=== PATIENT | male | born 1995 | race African-American/Black ===

== ENCOUNTER 2018-10-13 15:13 | Emergency (ER) | payer MEDICAID ==
[~2018-10-13] VITALS: Ht 177.8 cm; Wt 81.6 kg
--- NOTE | 2018-10-13 15:18 | NUR ---
ED Nurse Note: PT NOT IN THE WAITING ROOM
[2018-10-13] MEDS ORDERED: NKM (15:24)
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
[2018-10-13 15:32] VITALS: BP 150/89
[2018-10-13] MEDS ORDERED: Acetaminophen 500mg (ES) tab ORAL ONE (16:15)
[2018-10-13 16:18] LABS: EOSINOPHILS % (AUTO) 0.9 % (0.0-3.0); HEMATOCRIT 46.5 % (42.0-52.0); HEMOGLOBIN 16.1 G/DL (14.2-18.0); LYMPHOCYTES % (AUTO) 4.6 % (20.0-45.0); MEAN CORPUSCULAR VOLUME 91 FL (80-99); MONOCYTES % (AUTO) 9.1 % (1.0-10.0); NEUTROPHILS % (AUTO) 83.4 % (45.0-75.0); PLATELET COUNT 196 K/UL (150-450); RED BLOOD COUNT 5.11 M/UL (4.70-6.10); RED CELL DISTRIBUTION WIDTH 11.7 % (11.6-14.8); WHITE BLOOD COUNT 5.9 K/UL (4.8-10.8)
--- NOTE | 2018-10-13 16:20 | NUR ---
ED Nurse Note: Received verbal order for pt ok to eat and pt was provided a cup of water.
[2018-10-13 16:23] LABS: APPEARANCE,URINE CLEAR; BILIRUBIN, URINE NEGATIVE (NEGATIVE); COLOR,URINE PALE YELLOW; GLUCOSE, URINE (UA) NEGATIVE (NEGATIVE); KETONES,URINE NEGATIVE (NEGATIVE); LEUKOCYTE ESTERASE ,URINE NEGATIVE (NEGATIVE); NITRITE,URINE NEGATIVE (NEGATIVE); PH,URINE 8 (4.5-8.0); PROTEIN,URINE NEGATIVE (NEGATIVE); UROBILINOGEN,URINE 1 MG/DL (0.0-1.0)
[2018-10-13 16:26] LABS: ANION GAP 10 mmol/L (5-15); BLOOD UREA NITROGEN 11 mg/dL (7-18); CALCIUM 9.2 MG/DL (8.5-10.1); CARBON DIOXIDE 29 MMOL/L (21-32); CHLORIDE 100 MMOL/L (98-107); CREATININE 1.3 MG/DL (0.55-1.30); POTASSIUM 3.7 MMOL/L (3.5-5.1); SODIUM 139 MMOL/L (136-145)
[2018-10-13 16:30] VITALS: BP 153/85
--- NOTE | 2018-10-13 16:31 | NUR ---
ED Nurse Note: Pt's temp went down to 100.8F after 1g of Tylenol and HR is 101/min.
[2018-10-13 16:39] LABS: ALANINE AMINOTRANSFERASE 25 U/L (12-78); ALBUMIN 4.8 G/DL (3.4-5.0); ALBUMIN/GLOBULIN RATIO 1.5 (1.0-2.7); ALKALINE PHOSPHATASE 82 U/L (46-116); ASPARTATE AMINO TRANSFERASE 20 U/L (15-37); BILIRUBIN,TOTAL 0.4 MG/DL (0.2-1.0); CKMB 0.8 NG/ML (0.0-3.6); CREATINE KINASE 323 U/L (26-308)
--- NOTE | 2018-10-13 16:39 | Diagnostic Imaging Report ---
Indication: Headache Technique: Contiguous 5 mm thick transaxial imaging of the head obtained in a Siemens Sensation [address] scanner. Soft tissue and bone windows generated. Automatic Exposure Control was utilized. Total Dose length Product (DLP): 1425.[address] Dose Index Volume (CTDIvol): 70.38 mGy Comparison: none Findings: The size and configuration of the cortical sulci, basal cisterns, and ventricles are within normal limits for age. There is no mass effect, midline shift, or edema identified. There is no evidence of acute hemorrhage or abnormal intra-axial or extra-axial fluid collections. The bones and soft tissues are unremarkable. Impression: No mass effect, edema or acute bleed. The CT scanner at [facility] is accredited by the [employer] and the scans are performed using dose optimization techniques as appropriate to a performed exam including Automatic Exposure control.
--- NOTE | 2018-10-13 16:42 | Diagnostic Imaging Report ---
Indication: Dyspnea Comparison: None A single view chest radiograph was obtained. Findings: Cardiomediastinal appearance is within normal limits for age. The lungs are clear. Pulmonary vascularity is appropriate. The diaphragmatic contour is smooth and costophrenic angles are sharp. No pleural effusions are identified. The bones are unremarkable. Impression: No acute findings
--- NOTE | 2018-10-13 16:42 | Diagnostic Imaging Report ---
Indication: Back pain. Trauma Technique: Continuous helical transaxial imaging of the lumbar spine was obtained from the lung bases to the pubic symphysis. No IV contrast was administered. Coronal 2-D reformats were also obtained. Study obtained in a Siemens sensation [address] Total Dose length Product (DLP): 626.[address] Dose Index Volume (CTDIvol): 19.21 mGy Comparison: None Findings: There is no evidence of an acute fracture or malalignment. Height and configuration of the vertebral bodies and intervertebral discs are within normal limits. Minimal scalloping of the vertebral endplates noted. The facets are unremarkable. Transitional lumbosacral anatomy noted. There is no soft tissue swelling. Impression: No evidence of acute injury The CT scanner at [facility] is accredited by the [employer] and the scans are performed using dose optimization techniques as appropriate to a performed exam including Automatic Exposure control.
--- NOTE | 2018-10-13 17:00 | NUR ---
ED Nurse Note: pt stable and fair speed of respond to nurse and mother and son at bedside.
[2018-10-13] MEDS ORDERED: Ketorolac 30mg Inj IV ONE (17:15)
[2018-10-13] MEDS ORDERED: Methocarbamol 750mg tab ORAL ONE (17:15)
[2018-10-13 17:41] VITALS: BP 124/71
[2018-10-13 18:00] VITALS: BP 127/74
--- NOTE | 2018-10-13 18:02 | NUR ---
ED Nurse Note: pt was cleared to be discharged by ERMD. pt and family received prescriptions and discharge instruction and verbalized understanding. id band and iv removed. pt ambulated to be discharged.
[2018-10-13] MEDS ORDERED: ROBAXIN-750750 MG PO (18:32)
[2018-10-13] MEDS ORDERED: IBUPROFEN600 MG ORAL (18:32)
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
--- NOTE | 2018-10-14 13:42 | Cardiology Report ---
APPROVED REPORT EKG Measurement Heart [id number] ND [id number] Sinus tachycardia Otherwise normal ECG
== END 2018-10-13 18:04 | disposition home or self-care (01) ==
LOC: EMR 15:53
DX: S06.0X1A Concussion with loss of consciousness of 30 minutes or less, initial encounter (principal); V43.52XA Car driver injured in collision with other type car in traffic accident, initial encounter; Y92.89 Other specified places as the place of occurrence of the external cause; R50.9 Fever, unspecified; M54.5 Low back pain; M54.2 Cervicalgia; M79.10 Myalgia, unspecified site; R07.9 Chest pain, unspecified; R00.0 Tachycardia, unspecified
CPT/HCPCS: 36415; 70450; 71045; 72131; 80053; 80307; 81003; 82550; 82553; 83605; 83690; 84439; 84443; 85025; 86710; 87040; 93005; 96361; 96374; 99284; J1885

== ENCOUNTER 2019-09-01 21:29 | Emergency (ER) | payer MEDICAID ==
[~2019-09-01] VITALS: Ht 177.8 cm; Wt 81.6 kg
[~2019-09-01 21:29] MED LIST: IBUPROFEN600 MG ORAL; NKM; ROBAXIN-750750 MG PO
[2019-09-01 21:55] VITALS: BP 138/87
--- NOTE | 2019-09-01 21:55 | NUR ---
ED Nurse Note: Patient walked in to ER c/o congestion x 3 days, N/D. Patient presented calm AAO x4, VSS at this time.
[2019-09-01] MEDS ORDERED: Albuterol ud Inhalation HHN ONE (22:15)
[2019-09-01] MEDS ORDERED: Ipratropium 0.02% Inh Soln 2.5ml UD HHN ONE (22:15)
--- NOTE | 2019-09-01 22:36 | Emergency Room Report ---
History of Present Illness General Chief Complaint: Upper Respiratory Illness Source: Patient Present Illness HPI Patient presents with worsening cough for 4 days. He has history of asthma and also pneumonia in the past. He feels like he has pneumonia at this time. The cough is moderately productive. He has also had fevers and chills. There is been no nausea vomiting or diarrhea. He denies any skin rashes. He has been using an inhaler intermittently. He has never taken prednisone in the past that he knows about. He did not receive an influenza vaccination. No chest pain, palpitations, dysuria, abdominal pain, anxiety, visual changes, dizziness. Allergies: Coded Allergies: No Known Allergies (Unverified , 10/13/18) Patient History Past Medical History: see triage record Social History: Denies: smoking Social History Narrative with family Reviewed Nursing Documentation: PMH: Agreed; PSxH: Agreed Nursing Documentation-PMH Hx Asthma: Yes Review of Systems All Other Systems: negative except mentioned in HPI Physical Exam Vital Signs Date Time Temp Pulse Resp B/P (MAP) Pulse Ox O2 Delivery O2 Flow Rate FiO2 09/01/19 21:40 99.0 90 14 138/87 (104) 96 Room Air Sp02 EP Interpretation: reviewed, normal General Appearance: well appearing, no apparent distress, GCS 15 Head: normocephalic Eyes: bilateral eye normal inspection, bilateral eye PERRL ENT: TMs + canals normal, moist mucus membranes, pharyngeal erythema Respiratory: no respiratory distress, wheezing, expiration Cardiovascular #1: regular rate, rhythm Cardiovascular #2: 2+ radial (R) Gastrointestinal: normal inspection Genitourinary: no CVA tenderness Musculoskeletal: gait/station normal Neurologic: alert, grossly normal Psychiatric: mood/affect normal Skin: no rash Medical Decision Making Diagnostic Impression: Primary Impression: Asthmatic bronchitis Qualified Codes: J45.41 - Moderate persistent asthma with (acute) exacerbation ER Course Patient presents with cough with wheezes and rales at the left base. Differential includes pneumonia, influenza, bronchospasm and bronchitis. He is exposed to influenza and will be checking his son for this. Patient needs to be treated with prednisone and breathing treatments and an x-ray will be obtained. CXR without infiltrate. Tested family member for influenza (longer symptom duration) negative. Improved with treatment. Discussed findings with patient and treatment plan. Patient stable for outpatient observation and treatment. Chest X-Ray Diagnostic Results Chest X-Ray Diagnostic Results : Chest X-Ray Ordered: Yes # of Views/Limited/Complete: 1 View Indication: Other EP Interpretation: Yes Interpretation: no consolidation, no effusion, no pneumothorax Impression: No acute disease Electronically Signed by: Electronically signed by Willie Hartley MD Last Vital Signs Date Time Temp Pulse Resp B/P (MAP) Pulse Ox O2 Delivery O2 Flow Rate FiO2 09/02/19 00:50 99.0 14 138/87 96 Room Air 09/01/19 23:06 79 72 Status: improved Disposition: HOME, SELF-CARE Condition: Improved Scripts Albuterol Sulfate* (ALBUTEROL SULFATE MDI*) 8.5 Gm Hfa.aer.ad 2 PUFF INH Q6H, #1 EA 0 Refills Prov: Willie Hartley MD 09/02/19 Guaifenesin/Dextromethorphan (Robitussin Cough-Chest Dm Liq) 237 Ml Liquid 5 ML PO Q6HR, #90 ML Prov: Willie Hartley MD 09/02/19 Acetaminophen (Tylenol) 325 Mg Tablet 650 MG ORAL Q6H PRN for Prn Pain/Headache/Temp > 101, #20 TAB 0 Refills Prov: Willie Hartley MD 09/02/19 Prednisone* (PREDNISONE*) 20 Mg Tablet 40 MG ORAL DAILY, #10 TAB Prov: Willie Hartley MD 09/02/19 Azithromycin* (ZITHROMAX*) 250 Mg Tablet 250 MG ORAL DAILY, #4 TAB Prov: Willie Hartley MD 09/02/19 Willie Hartley MD Sep 01, 2019 22:36
--- NOTE | 2019-09-01 23:12 | Diagnostic Imaging Report ---
EXAM: XR Chest, 1 View CLINICAL HISTORY: DYSPNEA TECHNIQUE: Frontal view of the chest. COMPARISON: No relevant prior studies available. FINDINGS: Lungs: No significant abnormality. No consolidation. Pleural space: No significant abnormality. No pneumothorax. Heart: No significant abnormality. No cardiomegaly. Mediastinum: No significant abnormality. Bones/joints: No acute osseous abnormality. IMPRESSION: No acute cardiopulmonary process.
[2019-09-02] MEDS ORDERED: Azithromycin 250mg tab ORAL ONE (00:30)
[2019-09-02] MEDS ORDERED: ZITHROMAX250 MG ORAL (00:31)
[2019-09-02] MEDS ORDERED: TYLENOL325 MG ORAL (00:31)
[2019-09-02] MEDS ORDERED: PREDNISONE20 MG ORAL (00:31)
[2019-09-02] MEDS ORDERED: ROBITUSSIN COU237 M2 PO (00:31)
[2019-09-02] MEDS ORDERED: ALBUTEROL SULF8.5 GM INH (00:37)
[2019-09-02 00:50] VITALS: BP 138/87
--- NOTE | 2019-09-02 00:51 | NUR ---
ED Nurse Note: Pt cleared by health care Provider for discharge. DC instructions/prescription was given and explained to pt and verbalized understanding of teachings. All medical deviecs such as ID band removed. Pt is AAO x4, ambulatory and left with all personal belongings.
== END 2019-09-02 00:51 | disposition home or self-care (01) ==
LOC: EMR 21:58
DX: J45.41 Moderate persistent asthma with (acute) exacerbation (principal)
CPT/HCPCS: 71045; J7512; Q0144; Z7502; 99284